=== PATIENT | male | born 1950 | race Caucasian/White ===

== ENCOUNTER 2021-07-14 17:07 | Emergency (ER) | payer MEDICARE ==
[2021-07-14] MEDS ORDERED: Sodium Chloride 0.9% 1000 ML 1,000 ML IV STA (17:32)
[2021-07-14] MEDS ORDERED: Sodium Chloride 0.9% 1000 ML 1,000 ML ONE (17:37)
--- NOTE | 2021-07-14 17:53 | ERPHSYRPT ---
- History of Present Illness Time Seen by Provider: 07/14/21 17:35 Source: patient Exam Limitations: no limitations Patient Subjective Stated Complaint: weakness in legs x today, blurred vision since Friday, shortness of breath worse today than usual Triage Nursing Assessment: Patient presents to ED via wheelchair to room 5. Patient able to transfer over to bed but is weak. Pt appears SOB, tachypnea noted. O2 98% on RA. Skin PWD. Pt answers questions appropriately, is calm and cooperative, A & Ox3. Denies chest pain. Reports weak feeling starting in legs today. States fell this morning due to weakness. Also reports double vision since Friday. JASON noted. Physician History: Patient is a 71-year-old male who presents with a complaint of double vision on and off for 4 days he also complains of a headache. He also has had increased shortness of breath and tachypnea. And today he noticed weakness in both legs and actually had a spell where he fell. He denies any fever chills or sweats he has had no change in urination or bowel movements he does have some left-sided neck pain. He presently is on Cleocin for a laceration to his willett from Dr. Edwards. Timing/Duration: day(s) (4), intermittent Severity: moderate Modifying Factors: Improves With: movement Associated Symptoms: shortness of breath, cough, headaches, weakness, No nausea, No vomiting, No abdominal pain Allergies/Adverse Reactions: acetaminophen [From Tylenol-Codeine #3] Allergy (Verified 07/14/21 17:33) codeine [From Tylenol-Codeine #3] Allergy (Verified 07/14/21 17:33) meperidine [From Demerol] Allergy (Verified 07/14/21 17:33) Penicillins Allergy (Verified 07/14/21 17:34) Home Medications: Furosemide 20 mg [Lasix 20 mg] 20 mg PO DAILY 07/14/21 [History] Potassium Chloride 8 meq PO DAILY 07/14/21 [History] clindamycin HCL [Clindamycin HCl] 300 mg PO TID 07/14/21 [History] Hx Tetanus, Diphtheria Vaccination/Date Given: No Hx Influenza Vaccination/Date Given: No Travel Risk - International Travel Have you traveled outside of the country in past 3 weeks: No - Coronavirus Screening Are you exhibiting any of the following symptoms?: Yes Symptoms: Shortness of Breath Close contact with a COVID-19 positive Pt in past 14-21 Days: No - Vaccine Status Have you recieved a Covid-19 vaccination: No - Review of Systems Constitutional: Lethargy, Malaise, Weakness Eyes: Other (Double vision) Ears, Nose, & Throat: No Symptoms Respiratory: Cough, Dyspnea Cardiac: No Symptoms Abdominal/Gastrointestinal: No Symptoms Genitourinary Symptoms: No Symptoms Musculoskeletal: Arthralgias, Fall, Myalgias Neurological: Focal Weakness, Gait Changes, Headache Psychological: No Symptoms Endocrine: No Symptoms Hematologic/Lymphatic: No Symptoms Immunological/Allergic: No Symptoms - Past Medical History Pertinent Past Medical History: Yes - Past Surgical History Past Surgical History: Yes Other Surgical History: circumcision - Social History Smoking Status: Current every day smoker How long have you smoked: 45 years Drug Use: none - Nursing Vital Signs Nursing Vital Signs: Initial Vital Signs Temperature 99.0 F 07/14/21 17:22 Pulse Rate 107 H 07/14/21 17:22 Respiratory Rate 25 H 07/14/21 17:22 Blood Pressure 179/111 07/14/21 17:22 O2 Sat by Pulse Oximetry 96 07/14/21 17:22 Pain Scale Pain Intensity 4 - Physical Exam General Appearance: mild distress Eye Exam: PERRL/EOMI (On examination there does not appear to be any dysfunction of the extraocular muscles.), eyes nml inspection Ears, Nose, Throat Exam: normal ENT inspection, TMs normal, pharynx normal, moist mucous membranes Neck Exam: normal inspection, non-tender, supple, full range of motion Respiratory Exam: normal breath sounds, respiratory distress (Tachypnea) Cardiovascular Exam: regular rate/rhythm, tachycardia Gastrointestinal/Abdomen Exam: soft, normal bowel sounds Back Exam: normal inspection, normal range of motion Extremity Exam: normal inspection, normal range of motion, pelvis stable Neurologic Exam: alert, oriented x 3, cooperative, normal mood/affect, nml cerebellar function, nml station & gait, sensation nml, motor weakness, abnormal gait, No motor deficits Skin Exam: normal color, warm, dry SpO2 Interpretation: normal SpO2: 96 O2 Delivery: Room Air - Course Nursing assessment & vital signs reviewed: Yes EKG Interpreted by Me: RATE ([id number]), Sinus Tach, NORMAL AXIS, prolonged QT interval, Non-specific ST Changes Ordered Tests: Active Orders 24 hr Category Date Time Status Prop Drawer STAT Care 07/14/21 17:39 Active EKG-ER Only STAT Care 07/14/21 17:29 Active IV Insertion STAT Care 07/14/21 17:29 Active NPO (ED) STAT Care 07/14/21 17:29 Active CERVICAL SPINE WO CONTRAST [CT] Stat Exams 07/14/21 17:34 Taken CHEST 1 VIEW (PORTABLE) Stat Exams 07/14/21 17:29 Taken HEAD WITHOUT CONTRAST [CT] Stat Exams 07/14/21 17:30 Taken BLOOD CULTURE Stat Lab 07/14/21 17:50 Ordered CBC W DIFF Stat Lab 07/14/21 17:50 Completed CMP Stat Lab 07/14/21 17:50 Completed COVID AG-BINAX NOW RAPID TEST Stat Lab 07/14/21 18:46 Received D-DIMER QUANTITATIVE Stat Lab 07/14/21 17:30 Received ETHYL ALCOHOL Stat Lab 07/14/21 17:53 Completed INFLUENZA A+B MASSIEL Stat Lab 07/14/21 18:46 Received Lactic Acid Stat Lab 07/14/21 17:38 Completed [place] Screen Stat Lab 07/14/21 17:50 Completed TROPONIN Q3H Lab 07/14/21 17:50 Completed TROPONIN Q3H Lab 07/14/21 20:30 Ordered TROPONIN Q3H Lab 07/14/21 23:30 Ordered TROPONIN Q3H Lab 07/15/21 02:30 Ordered TROPONIN Q3H Lab 07/15/21 05:30 Ordered UA W/RFX UR CULTURE Stat Lab 07/14/21 17:29 Ordered Urine Triage Profile Stat Lab 07/14/21 17:29 Ordered Medication Summary Discontinued Medications Generic Name Dose Route Start Last Admin Trade Name Freq PRN Reason Stop Dose Admin Sodium Chloride 1,000 mls @ 999 mls/hr 07/14/21 17:32 07/14/21 18:39 Sodium Chloride 0.9% 1000 Ml IV 07/14/21 18:32 Infused .Q1H1M STA Infusion Sodium Chloride Confirm 07/14/21 17:37 Sodium Chloride 0.9% 1000 Ml Administered 07/14/21 17:38 Dose 1,000 mls @ ud .ROUTE .STK-MED ONE Lab/Rad Data: Laboratory Result Diagrams 07/14/21 17:50 07/14/21 17:50 Laboratory Results 07/14/21 07/14/21 07/14/21 Range/Units 17:53 17:50 17:50 WBC (4.0-10.5) K/mm3 RBC (4.1-5.6) M/mm3 Hgb (12.5-18.0) gm/dl Hct (42-50) % MCV (78-100) fl MCH (26-32) pg MCHC (32-36) g/dl RDW (11.5-14.0) % Plt Count (150-450) K/mm3 MPV (7.5-11.0) fl Gran % (36.0-66.0) % Eos # (Auto) (0-0.5) Absolute Lymphs (auto) (1.0-4.6) Absolute Monos (auto) (0.0-1.3) Lymphocytes % (24.0-44.0) % Monocytes % (0.0-12.0) % Eosinophils % (0.00-5.0) % Basophils % (0.0-0.4) % Absolute Granulocytes (1.4-6.9) Basophils # (0-0.4) Sodium 133 L (137-145) mmol/L Potassium 4.3 (3.5-5.1) mmol/L Chloride 98 (98-107) mmol/L Carbon Dioxide 27 (22-30) mmol/L Anion Gap 12.4 (5-15) MEQ/L BUN 20 (9-20) mg/dL Creatinine 1.06 (0.66-1.25) mg/dL Estimated GFR > 60.0 ML/MIN Glucose 97 (74-106) mg/dL Lactic Acid (0.4-2.0) Calcium 9.3 (8.4-10.2) mg/dL Total Bilirubin 2.60 H (0.2-1.3) mg/dL AST 31 (17-59) U/L ALT 15 (0-50) U/L Alkaline Phosphatase 100 (38-126) U/L Troponin I (0.000-0.034) ng/mL Serum Total Protein 7.1 (6.3-8.2) g/dL Albumin 4.2 (3.5-5.0) g/dL Ethyl Alcohol < 10 (0-10) mg/dL Monoscreen NEGATIVE (Negative) 07/14/21 07/14/21 07/14/21 Range/Units 17:50 17:50 17:38 WBC 8.2 (4.0-10.5) K/mm3 RBC 3.49 L (4.1-5.6) M/mm3 Hgb 12.5 (12.5-18.0) gm/dl Hct 33.1 L (42-50) % MCV 94.8 (78-100) fl MCH 35.8 H (26-32) pg MCHC 37.8 H (32-36) g/dl RDW 14.1 H (11.5-14.0) % Plt Count 259 (150-450) K/mm3 MPV 8.8 (7.5-11.0) fl Gran % 73.5 H (36.0-66.0) % Eos # (Auto) 0.12 (0-0.5) Absolute Lymphs (auto) 1.53 (1.0-4.6) Absolute Monos (auto) 0.49 (0.0-1.3) Lymphocytes % 18.6 L (24.0-44.0) % Monocytes % 6.0 (0.0-12.0) % Eosinophils % 1.5 (0.00-5.0) % Basophils % 0.4 (0.0-0.4) % Absolute Granulocytes 6.06 (1.4-6.9) Basophils # 0.03 (0-0.4) Sodium (137-145) mmol/L Potassium (3.5-5.1) mmol/L Chloride (98-107) mmol/L Carbon Dioxide (22-30) mmol/L Anion Gap (5-15) MEQ/L BUN (9-20) mg/dL Creatinine (0.66-1.25) mg/dL Estimated GFR ML/MIN Glucose (74-106) mg/dL Lactic Acid 0.7 (0.4-2.0) Calcium (8.4-10.2) mg/dL Total Bilirubin (0.2-1.3) mg/dL AST (17-59) U/L ALT (0-50) U/L Alkaline Phosphatase (38-126) U/L Troponin I < 0.012 (0.000-0.034) ng/mL Serum Total Protein (6.3-8.2) g/dL Albumin (3.5-5.0) g/dL Ethyl Alcohol (0-10) mg/dL Monoscreen (Negative) - Progress Progress: unchanged - Departure Departure Disposition: Home Clinical Impression: Leg weakness, Diplopia, Headache Condition: Fair Critical Care Time: No Referrals: DONNA EDWARDS [Primary Care Provider] - Follow up/PCP as directed
[2021-07-14 17:58] LABS: Absolute Neutrophil Ct (ANC) 6.06 (1.4-6.9); Basophil (Absolute #) 0.03 (0-0.4); Eosinophil % 1.5 % (0.00-5.0); Eosinophil (Absolute #) 0.12 (0-0.5); Hematocrit 33.1 % (42-50); Hemoglobin 12.5 gm/dl (12.5-18.0); Lymphocyte (Absolute #) 1.53 (1.0-4.6); Lymphocytes % 18.6 % (24.0-44.0); Mean Cell Volume 94.8 fl (78-100); Mean Corpuscular Hemoglobin 35.8 pg (26-32); Mean Corpuscular Hgb Concent. 37.8 g/dl (32-36); Mean Platelet Volume 8.8 fl (7.5-11.0); Monocyte (Absolute #) 0.49 (0.0-1.3); Neutrophil % 73.5 % (36.0-66.0); Platelet Count 259 K/mm3 (150-450); Red Blood Count 3.49 M/mm3 (4.1-5.6); Red Cell Distribution Width 14.1 % (11.5-14.0); White Blood Count 8.2 K/mm3 (4.0-10.5)
[2021-07-14 18:06] LABS: ALBUMIN 4.2 g/dL (3.5-5.0); ALKALINE PHOSPHATASE 100 U/L (38-126); ANION GAP 12.4 MEQ/L (5-15); BLOOD UREA NITROGEN 20 mg/dL (9-20); CHLORIDE 98 mmol/L (98-107); Calcium 9.3 mg/dL (8.4-10.2); Carbon Dioxide 27 mmol/L (22-30); Creatinine 1 1.06 mg/dL (0.66-1.25); EST GLOMERULAR FILTRATION RATE > 60.0 ML/MIN; Glucose 97 mg/dL (74-106); Potassium 4.3 mmol/L (3.5-5.1); SGOT/AST 31 U/L (17-59); SGPT/ALT 15 U/L (0-50); SODIUM 133 mmol/L (137-145); Total Protein 7.1 g/dL (6.3-8.2)
[2021-07-14 19:14] VITALS: O2SAT 97
[2021-07-14 19:23] LABS: INFLUENZA A NEGATIVE (NEGATIVE); INFLUENZA B NEGATIVE (NEGATIVE)
[2021-07-14 19:24] LABS: COVID AG -BINAX NOW RAPID TEST NEGATIVE (NEGATIVE)
[2021-07-14 20:29] LABS: Appearance CLEAR (CLEAR); Bilirubin NEGATIVE (NEGATIVE); Blood NEGATIVE Ery/ul (0-5); Glucose NEGATIVE (NEGATIVE); Ketones NEGATIVE (NEGATIVE); Leukocyte Esterase NEGATIVE (NEGATIVE); Nitrite NEGATIVE (NEGATIVE); Protein,Urine Dip NEGATIVE (Negative); Specific Gravity 1.019 (1.005-1.025); Urobilinogen NEGATIVE mg/dL (0-1)
[2021-07-14 20:41] LABS: Amphetamine,Urine NEGATIVE (NEGATIVE); Bacteria NONE SEEN /HPF (NEGATIVE); Barbiturate,Urine NEGATIVE (NEGATIVE); Benzodiazepine,Urine NEGATIVE (NEGATIVE); Cocaine,Urine NEGATIVE (NEGATIVE); Methadone,Urine NEGATIVE (NEGATIVE); Opiate,Urine NEGATIVE (NEGATIVE); PCP,Urine NEGATIVE (NEGATIVE); THC,Urine NEGATIVE (NEGATIVE); WBC NONE SEEN /HPF (0-5)
[2021-07-14 21:05] VITALS: BP 152/93; PULSE 93
--- NOTE | 2021-07-14 21:37 | XRAY ---
Indication: Pain. Status post fall. Multiple contiguous axial images obtained through the cervical spine. Sagittal and coronal reformatted images obtained. Comparison: None Osseous structures demineralized. Axial images negative for acute fracture, suspicious bony lesions, or spinal canal stenosis. Minimal C3-C5 degenerative vacuum disc phenomena and mild multilevel bilateral degenerative facet hypertrophy. Sagittal and coronal reformatted images demonstrates normal alignment. Tiny C3-C5 Schmorl nodes. T1 superior endplate concave deformity with less than 25% height loss of uncertain chronicity. Visualized noncontrasted soft tissues demonstrates mild bilateral carotid calcifications. Patient is edentulous. CT chest reported separately. Impression: 1. T1 superior endplate concave deformity of uncertain chronicity. 2. Osteopenia, multilevel degenerative changes, and tiny C3-C5 Schmorl nodes. Comment: Preliminary interpretation made by [facility]. No critical discrepancy.
--- NOTE | 2021-07-14 21:40 | XRAY ---
Indication: Weakness. Status post fall. Multiple contiguous axial images obtained through the head without contrast. Comparison: None Age-appropriate global atrophy and mild periventricular degenerative micro-ischemia bilaterally. No acute intracranial hemorrhage, abnormal extra-axial fluid collection, or mass effect. Fourth ventricle is midline without hydrocephalus. Bony calvarium intact. Visualized paranasal sinuses and mastoid air cells are clear. Impression: Nonacute senile brain. Comment: Preliminary interpretation made by [facility]. No critical discrepancy.
--- NOTE | 2021-07-14 21:48 | XRAY ---
Indication: Weakness, short of breath, and dizziness. Status post fall. Elevated d-dimer. Conventional CTA chest performed using 80 cc of Isovue 370 contrast. Sagittal and coronal reformatted images obtained. Additional 3-dimensional reformatted images obtained using a separate workstation. Comparison: None Good opacification of the pulmonary arteries to include the lobar and segmental branches. No pulmonary embolus. Heart not enlarged. Thoracic is minimally arteriosclerotic without aneurysm/dissection. Bulky left infrahilar soft tissue mass extending into the left lower lobe measuring at least 5.5 x 10.0 x 6.0 cm. Remaining lungs demonstrate extensive pulmonary emphysema with left lower lobe fibrosis/scarring. No effusion. Bony thorax demonstrates osteopenia, mild degenerative changes throughout the spine, old right 2-6 rib fractures, and accentuated thoracic kyphosis. L2 and visualized L3 vertebral bodies demonstrates patchy sclerosis concerning for metastasis. Limited upper abdomen demonstrates multiple hepatic hypodense lesions, largest right lobe also worrisome for metastasis. Abdominal aorta demonstrates incompletely visualized 6 cm infrarenal AAA. Impression: 1. Negative pulmonary embolus. 2. Incompletely visualized 6 cm infrarenal AAA. 3. Large left infrahilar/left lower lobe soft tissue mass worrisome for malignancy. 4. Hepatic metastasis. 5. L2/L3 sclerotic lesions concerning for additional metastasis. 6. Extensive pulmonary emphysema and chronic bony findings. Comment: Preliminary interpretation made by [facility]. No critical discrepancy.
--- NOTE | 2021-07-14 21:52 | XRAY ---
Indication: Weakness. Status post fall. Comparison: None Portable chest demonstrates COPD and CT proven left infrahilar/left lower lobe mass. Right lung clear. Heart not enlarged. Bony thorax intact with osteopenia, degenerative changes, and old right rib fractures. Comment: Preliminary interpretation made by [facility]. No critical discrepancy.
== END 2021-07-14 21:15 | disposition home or self-care (01) ==
LOC: ED 17:07
DX: M62.81 Muscle weakness (generalized) (principal); H53.2 Diplopia; R51.9 Headache, unspecified; R91.8 Other nonspecific abnormal finding of lung field; I71.4 Abdominal aortic aneurysm, without rupture; R06.02 Shortness of breath; Z72.0 Tobacco use; Z79.899 Other long term (current) drug therapy
CPT/HCPCS: 36000; 36415; 70450; 71045; 71260; 72125; 80053; 80307; 81001; 83605; 84484; 85025; 85379; 86308; 87040; 87400; 87651; 93005; 93041; 99000; 99284; G0480; 96360

== ENCOUNTER 2021-07-17 10:42 | Emergency (ER) | payer MEDICARE ==
[2021-07-17 10:50] VITALS: O2SAT 98
--- NOTE | 2021-07-17 11:23 | ERPHSYRPT ---
- History of Present Illness Time Seen by Provider: 07/17/21 11:00 Source: patient Exam Limitations: no limitations Patient Subjective Stated Complaint: PT SENT OVER FROM [facility] OFFICE, FOR DIZZINESS, HE WAS JUST TOLD HE HAD LEFT LUNG CANCER, PT IS VERY EMITIONAL, HE WAS SEEN LAST WEEK FOR SAME CO,PT STATES HE HAS NOT HELP AT HOME AND IS NOW WALKING WITH 2 CANES Triage Nursing Assessment: PT ALERT, RESP EASY AT REST, LABORED WITH EXCERTION, FACE MASK IN PLACE, SKIN W/D/P. NO EDEMA NOTED. Physician History: Patient is a 71-year-old male presents to emergency department for evaluation of progressive weakness. Patient was in our emergency department just 3 days ago. Patient was worked up and diagnosed with metastatic lung cancer. Work-up revealed metastasis to the liver bones and incidentally observed 6 cm infrarenal AAA. Patient followed up with his primary care doctor today. He was informed that he had metastatic cancer. Patient began to vomit. Patient was sent to our emergency room for evaluation. Patient is very distraught. Patient is tearful stating "I do not want to ". Patient's nausea and vomiting have improved. Patient continues to feel weak. No significant pain at this time. Patient declined pain medication. Symptoms are constant. Symptoms are moderate in intensity. No specific worsening improving factors. Patient voices no other complaints concerns at this time. Patient admits to extensive smoking history. Patient is still a smoker. Timing/Duration: today Severity: moderate Modifying Factors: Improves With: nothing Associated Symptoms: nausea, vomiting, weakness Allergies/Adverse Reactions: acetaminophen [From Tylenol-Codeine #3] Allergy (Verified 07/17/21 10:51) codeine [From Tylenol-Codeine #3] Allergy (Verified 07/17/21 10:51) meperidine [From Demerol] Allergy (Verified 07/17/21 10:51) Penicillins Allergy (Verified 07/17/21 10:51) Home Medications: Furosemide 20 mg [Lasix 20 mg] 20 mg PO DAILY 07/14/21 [History] Potassium Chloride 8 meq PO DAILY 07/14/21 [History] clindamycin HCL [Clindamycin HCl] 300 mg PO TID 07/14/21 [History] Hx Tetanus, Diphtheria Vaccination/Date Given: No Hx Influenza Vaccination/Date Given: No Hx Pneumococcal Vaccination/Date Given: No Immunizations Up to Date: Yes Travel Risk - International Travel Have you traveled outside of the country in past 3 weeks: No - Coronavirus Screening Are you exhibiting any of the following symptoms?: No Close contact with a COVID-19 positive Pt in past 14-21 Days: No - Vaccine Status Have you recieved a Covid-19 vaccination: No - Review of Systems Constitutional: No Symptoms, No Fever, No Chills Eyes: No Symptoms Ears, Nose, & Throat: No Symptoms Respiratory: No Symptoms, No Cough, No Dyspnea Cardiac: No Symptoms, No Chest Pain, No Edema, No Syncope Abdominal/Gastrointestinal: No Symptoms, No Abdominal Pain, No Nausea, No Vomiting, No Diarrhea Genitourinary Symptoms: No Symptoms, No Dysuria Musculoskeletal: No Symptoms, No Back Pain, No Neck Pain Skin: No Symptoms, No Rash Neurological: No Symptoms, No Dizziness, No Focal Weakness, No Sensory Changes Psychological: No Symptoms Endocrine: No Symptoms Hematologic/Lymphatic: No Symptoms Immunological/Allergic: No Symptoms All Other Systems: Reviewed and Negative - Past Medical History Pertinent Past Medical History: Yes Respiratory History: Lung Cancer Other Medical History: pt states not sure what his medical diagnoses are - Past Surgical History Past Surgical History: Yes Other Surgical History: circumcision - Social History Smoking Status: Current every day smoker How long have you smoked: 45 years Exposure to second hand smoke: Yes Drug Use: none Patient Lives Alone: Yes - Nursing Vital Signs Nursing Vital Signs: Initial Vital Signs Temperature 98.9 F 07/17/21 10:45 Pulse Rate 99 H 07/17/21 10:45 Respiratory Rate 18 07/17/21 10:45 Blood Pressure 173/115 07/17/21 10:45 O2 Sat by Pulse Oximetry 98 07/17/21 10:45 Pain Scale Pain Intensity 0 - Physical Exam General Appearance: no apparent distress, alert Eye Exam: PERRL/EOMI, eyes nml inspection Ears, Nose, Throat Exam: normal ENT inspection, TMs normal, pharynx normal, moist mucous membranes Neck Exam: normal inspection, non-tender, supple, full range of motion Respiratory Exam: normal breath sounds, lungs clear, airway intact, No respiratory distress Cardiovascular Exam: regular rate/rhythm, normal heart sounds, normal peripheral pulses Gastrointestinal/Abdomen Exam: soft, normal bowel sounds, No tenderness, No mass Back Exam: normal inspection, normal range of motion, No CVA tenderness, No vertebral tenderness Extremity Exam: normal inspection, normal range of motion, pelvis stable Neurologic Exam: alert, oriented x 3, cooperative, normal mood/affect, nml cerebellar function, nml station & gait, sensation nml, No motor deficits Skin Exam: normal color, warm, dry, No rash Lymphatic Exam: No adenopathy SpO2 Interpretation: normal SpO2: 98 O2 Delivery: Room Air - Course Nursing assessment & vital signs reviewed: Yes Ordered Tests: Active Orders 24 hr Category Date Time Status Is Analyst STAT Care 07/17/21 11:15 Active EKG-ER Only STAT Care 07/17/21 11:14 Active IV Insertion STAT Care 07/17/21 11:14 Active Pulse Oximetry (ED) STAT Care 07/17/21 11:14 Active CBC W DIFF Stat Lab 07/17/21 11:30 Completed CMP Stat Lab 07/17/21 11:30 Completed MAGNESIUM Stat Lab 07/17/21 11:30 Completed TROPONIN Q3H Lab 07/17/21 11:30 Completed TROPONIN Q3H Lab 07/17/21 14:15 Ordered TROPONIN Q3H Lab 07/17/21 17:15 Ordered TROPONIN Q3H Lab 07/17/21 20:15 Ordered TROPONIN Q3H Lab 07/17/21 23:15 Ordered UA W/RFX UR CULTURE Stat Lab 07/17/21 11:15 Ordered Lab/Rad Data: Laboratory Result Diagrams 07/17/21 11:30 07/17/21 11:30 Laboratory Results 07/17/21 07/17/21 07/17/21 Range/Units 11:43 11:30 11:30 WBC (4.0-10.5) K/mm3 RBC (4.1-5.6) M/mm3 Hgb (12.5-18.0) gm/dl Hct (42-50) % MCV (78-100) fl MCH (26-32) pg MCHC (32-36) g/dl RDW (11.5-14.0) % Plt Count (150-450) K/mm3 MPV (7.5-11.0) fl Gran % (36.0-66.0) % Eos # (Auto) (0-0.5) Absolute Lymphs (auto) (1.0-4.6) Absolute Monos (auto) (0.0-1.3) Lymphocytes % (24.0-44.0) % Monocytes % (0.0-12.0) % Eosinophils % (0.00-5.0) % Basophils % (0.0-0.4) % Absolute Granulocytes (1.4-6.9) Basophils # (0-0.4) Sodium 136 L (137-145) mmol/L Potassium 4.1 (3.5-5.1) mmol/L Chloride 102 (98-107) mmol/L Carbon Dioxide 25 (22-30) mmol/L Anion Gap 12.7 (5-15) MEQ/L BUN 15 (9-20) mg/dL Creatinine 0.98 (0.66-1.25) mg/dL Estimated GFR > 60.0 ML/MIN Glucose 100 (74-106) mg/dL Calcium 8.7 (8.4-10.2) mg/dL Magnesium 2.1 (1.6-2.3) mg/dL Total Bilirubin 3.10 H (0.2-1.3) mg/dL AST 29 (17-59) U/L ALT 15 (0-50) U/L Alkaline Phosphatase 86 (38-126) U/L Troponin I 0.013 (0.000-0.034) ng/mL Serum Total Protein 7.0 (6.3-8.2) g/dL Albumin 3.9 (3.5-5.0) g/dL Influenza Type A Ag NEGATIVE (NEGATIVE) Influenza Type B Ag NEGATIVE (NEGATIVE) RSV (PCR) NEGATIVE (Negative) SARS-CoV-2 (PCR) NEGATIVE (NEGATIVE) 07/17/21 Range/Units 11:30 WBC 6.5 (4.0-10.5) K/mm3 RBC 3.48 L (4.1-5.6) M/mm3 Hgb 11.5 L (12.5-18.0) gm/dl Hct 32.6 L (42-50) % MCV 93.7 (78-100) fl MCH 33.0 H (26-32) pg MCHC 35.3 (32-36) g/dl RDW 14.1 H (11.5-14.0) % Plt Count 222 (150-450) K/mm3 MPV 8.2 (7.5-11.0) fl Gran % 81.4 H (36.0-66.0) % Eos # (Auto) 0.03 (0-0.5) Absolute Lymphs (auto) 0.86 L (1.0-4.6) Absolute Monos (auto) 0.28 (0.0-1.3) Lymphocytes % 13.3 L (24.0-44.0) % Monocytes % 4.3 (0.0-12.0) % Eosinophils % 0.5 (0.00-5.0) % Basophils % 0.5 (0.0-0.4) % Absolute Granulocytes 5.25 (1.4-6.9) Basophils # 0.03 (0-0.4) Sodium (137-145) mmol/L Potassium (3.5-5.1) mmol/L Chloride (98-107) mmol/L Carbon Dioxide (22-30) mmol/L Anion Gap (5-15) MEQ/L BUN (9-20) mg/dL Creatinine (0.66-1.25) mg/dL Estimated GFR ML/MIN Glucose (74-106) mg/dL Calcium (8.4-10.2) mg/dL Magnesium (1.6-2.3) mg/dL Total Bilirubin (0.2-1.3) mg/dL AST (17-59) U/L ALT (0-50) U/L Alkaline Phosphatase (38-126) U/L Troponin I (0.000-0.034) ng/mL Serum Total Protein (6.3-8.2) g/dL Albumin (3.5-5.0) g/dL Influenza Type A Ag (NEGATIVE) Influenza Type B Ag (NEGATIVE) RSV (PCR) (Negative) SARS-CoV-2 (PCR) (NEGATIVE) - Progress Progress: improved Progress Note: Case discussed with Dr. Summers of [facility] who accepts admission to observation. Dr. Guido accepted patient however we will notify her of the transfer. Plan of care discussed with patient. He agrees to transfer to [facility] for further evaluation and treatment. Patient voices no other complaints or concerns at this time. Portions of this note were created with voice recognition technology. There may be grammatical, spelling, punctuation or sound alike errors 07/17/21 12:34 Counseled pt/family regarding: lab results - Departure Departure Disposition: Observation Clinical Impression: Metastatic primary lung cancer, Generalized weakness, Nausea and vomiting Condition: Stable Critical Care Time: No Referrals: DONNA COLLINS [Primary Care Provider] - Follow up/PCP as directed
[2021-07-17 11:31] LABS: Absolute Neutrophil Ct (ANC) 5.25 (1.4-6.9); Basophil (Absolute #) 0.03 (0-0.4); Eosinophil % 0.5 % (0.00-5.0); Eosinophil (Absolute #) 0.03 (0-0.5); Hematocrit 32.6 % (42-50); Hemoglobin 11.5 gm/dl (12.5-18.0); Lymphocyte (Absolute #) 0.86 (1.0-4.6); Lymphocytes % 13.3 % (24.0-44.0); Mean Cell Volume 93.7 fl (78-100); Mean Corpuscular Hgb Concent. 35.3 g/dl (32-36); Mean Platelet Volume 8.2 fl (7.5-11.0); Monocyte (Absolute #) 0.28 (0.0-1.3); Monocytes % 4.3 % (0.0-12.0); Neutrophil % 81.4 % (36.0-66.0); Platelet Count 222 K/mm3 (150-450); Red Blood Count 3.48 M/mm3 (4.1-5.6); Red Cell Distribution Width 14.1 % (11.5-14.0); White Blood Count 6.5 K/mm3 (4.0-10.5)
[2021-07-17 11:42] LABS: ALBUMIN 3.9 g/dL (3.5-5.0); ALKALINE PHOSPHATASE 86 U/L (38-126); ANION GAP 12.7 MEQ/L (5-15); BLOOD UREA NITROGEN 15 mg/dL (9-20); CHLORIDE 102 mmol/L (98-107); Calcium 8.7 mg/dL (8.4-10.2); Carbon Dioxide 25 mmol/L (22-30); Creatinine 1 0.98 mg/dL (0.66-1.25); EST GLOMERULAR FILTRATION RATE > 60.0 ML/MIN; Glucose 100 mg/dL (74-106); MAGNESIUM 2.1 mg/dL (1.6-2.3); Potassium 4.1 mmol/L (3.5-5.1); SGOT/AST 29 U/L (17-59); SGPT/ALT 15 U/L (0-50); SODIUM 136 mmol/L (137-145)
[2021-07-17 12:23] LABS: INFLUENZA A NEGATIVE (NEGATIVE); INFLUENZA B NEGATIVE (NEGATIVE); RESPIRATORY SYNCTIAL VIRUS NEGATIVE (Negative); SARS-CoV-2 Xpert Express NEGATIVE (NEGATIVE)
[2021-07-17 13:53] VITALS: BP 127/80; PULSE 98
== END 2021-07-17 13:55 | disposition short-term general hospital (02) ==
LOC: ED 10:42
DX: C34.90 Malignant neoplasm of unspecified part of unspecified bronchus or lung (principal); C78.7 Secondary malignant neoplasm of liver and intrahepatic bile duct; C79.51 Secondary malignant neoplasm of bone; Z72.0 Tobacco use; R53.1 Weakness; R11.2 Nausea with vomiting, unspecified
CPT/HCPCS: 0241U; 36000; 36415; 80053; 83735; 84484; 85025; 93005; 93041; 94760; 99285